=== PATIENT | female | born 1960 | race Caucasian/White ===

== ENCOUNTER 2018-09-27 17:57 | Emergency (ER) | payer BC ==
[2018-09-27 18:35] VITALS: BP 134/88
--- NOTE | 2018-09-27 19:00 | UC ---
Skin Complaint HPI - HPI Summary HPI Summary: 58 y/o female presents to the urgent care c/o Possible tick bite in the Right lateral side of lower back she noticed today around 1700. Pt is not sure how long was the tick there. She removed, but she thinks some tick remnants still there. Pain is mild 2/10. Pt has had tick bite in the past and has taken prophylactic treatment for it. Pt denies fever, SOB, chest pain, SCHMIDT, joint pain , abdominal pain, N/V/D - History of Current Complaint Chief Complaint: UCSkin Time Seen by Provider: 09/27/18 18:47 Stated Complaint: TICK BITE Hx Obtained From: Patient Onset/Duration: Sudden Onset, Lasting Days - 2 days, Still Present Skin Exposure Onset/Duration: Days Ago - 2 days ago Timing: Constant Onset Severity: Mild Current Severity: Mild Pain Intensity: 1 Pain Scale Used: 0-10 Numeric - Allergy/Home Medications Allergies/Adverse Reactions: Allergies Allergy/AdvReac Type Severity Reaction Status Date / Time amoxicillin [From Augmentin] Allergy Hives Verified 09/27/18 18:23 cefuroxime [From Ceftin] Allergy GI Upset Verified 09/27/18 18:23 clarithromycin [From Biaxin] Allergy GI Upset Verified 09/27/18 18:23 clavulanic acid Allergy Hives Verified 09/27/18 18:23 [From Augmentin] sulfamethoxazole Allergy GI Upset Verified 09/27/18 18:23 [From Bactrim] trimethoprim [From Bactrim] Allergy GI Upset Verified 09/27/18 18:23 ENVIRONMENTAL/SEASONAL Allergy Congestion Uncoded 10/20/14 08:20 Home Medications: Home Medications Cetirizine HCl [Zyrtec] 10 mg PO DAILY 09/27/18 [History Confirmed 09/27/18] PMH/Surg Hx/FS Hx/Imm Hx Previously Healthy: Yes GI/ History: Gastroesophageal Reflux Psychological History: Anxiety, Depression - Surgical History Surgical History: Yes Surgery Procedure, Year, and Place: 2005 RIGHT CARPAL TUNNEL RELEASE, [facility]. 2007 PARTIAL [facility]STERECTOMY, [facility]. LEFT KNEE ARTHROSCOPIC SURGERY, [facility] [place]. 1981 CSECTION, [facility] [place]. 2009 COLONOSCOPY, [facility] [place] - Family History Known Family History: Positive: Cardiac Disease, Hypertension - Social History Occupation: Employed Full-time Alcohol Use: None Substance Use Type: None Smoking Status (MU): Never Smoked Tobacco Review of Systems All Other Systems Reviewed And Are Negative: Yes Constitutional: Positive: Negative Skin: Positive: Other - tick bite on the Rt side of lower back Eyes: Positive: Negative ENT: Positive: Negative Respiratory: Positive: Negative Cardiovascular: Positive: Negative Gastrointestinal: Positive: Negative Genitourinary: Positive: Negative Motor: Positive: Negative Neurovascular: Positive: Negative Musculoskeletal: Positive: Negative Neurological: Positive: Negative Psychological: Positive: Negative Is Patient Immunocompromised?: No Physical Exam - Summary Physical Exam Summary: Vital Signs Reviewed: Yes General: well developed, well nourished obese female sitting in the examining table w/o any apparent distress. Eyes: Positive: Conjunctiva Clear - PERRLA, EOMI ENT: Positive: Normal ENT inspection, Hearing grossly normal, Pharynx normal, TMs normal Neck: Positive: Supple, Nontender, No Lymphadenopathy Respiratory: Positive: Chest nontender, Lungs clear, Normal breath sounds Cardiovascular: Positive: RRR, No Murmur, Pulses Normal Abdomen Description: Positive: Nontender, No Organomegaly, Soft. Negative: CVA Tenderness (R), CVA Tenderness (L) Bowel Sounds: Positive: Present Musculoskeletal: Positive: Strength Intact, ROM Intact, No Edema Neurological Exam: Normal Psychological Exam: Normal Skin: Positive: rashes - Right lateral aspect of the lower back with tick bite over a mole with surrounding erythema, non tender to palpation. tick remnant still present, no swelling or drainage observed. Triage Information Reviewed: Yes Vital Signs: Initial Vital Signs Temp 98.8 F 09/27/18 18:27 Pulse 92 09/27/18 18:27 Resp 18 09/27/18 18:27 BP 134/88 09/27/18 18:27 Pulse Ox 98 09/27/18 18:27 Course/Dx - Course Course Of Treatment: 58 y/o female presents to the urgent care c/o Possible tick bite in the Right lateral side of lower back she noticed today around 1700. Pt is not sure how long was the tick there. She removed, but she thinks some tick remnants still there. Pain is mild 2/10. Pt has had tick bite in the past and has taken prophylactic treatment for it. Pt denies fever, SOB, chest pain, SCHMIDT, joint pain , abdominal pain, N/V/D. Hx obtained. Pt w/ tick bite on the Right lateral side of lower back w/ a tick bite over a mole. Tick remnant removed w/ tweezers and skin cleaned w/ alcohol swabs and bacitracin oint applied over the area. Antibiotic prophylaxis with Doxycycline given to the patient to prevent lyme Disease.. Pt tolerated well medication. Pt advised to observe the area for the development or Erythema Migrans for upto 30 days following exposure. Advised if he develops fever or erythema Migrans to return to the clinic or PCP for further treatment .Pt understood and agreed with plan of care. - Differential Diagnoses - Skin Complaint Differential Diagnoses: Abscess, Cellulitis, Local Allergic Reaction, Tick Born Illness, Other - bee sting. insect bite - Diagnoses Provider Diagnosis: Tick bite of lower back Discharge - Sign-Out/Discharge Documenting (check all that apply): Patient Departure - d/c home All imaging exams completed and their final reports reviewed: No Studies - Discharge Plan Condition: Stable Disposition: HOME Prescriptions: Bacitracin OINTMENT* 1 applic TOPICAL BID #1 tube Patient Education Materials: Tick Bite (ED) Referrals: Omar Yadav MD [Primary Care Provider] - 2 Weeks Leelee ADORNO,Too Pollard [Medical Doctor] - If Needed Additional Instructions: 1- Please observe the area for the development or Erythema Migrans for upto 30 days following exposure. Components of the tick saliva can cause transient erythema that should not be confused with Erythema Migrans. If you develop the bull's eye rash, fever, joint pains please return to the urgent care or f/u with your PCP for further management. apply Bacitracin topical oint as directed on the tick bite to prevent local infection. 2-Antibiotic prophylaxis with Doxycycline was given to you today to prevent lyme Disease. Lyme serology can be drawn in 2 weeks with your PCP or Dr Mahan to r/o Lyme disease since there is probability of negative results at early exposure. - Billing Disposition and Condition Condition: STABLE Disposition: Home
[2018-09-27] MEDS ORDERED: DOXYcycline CAP(*) 100 MG PO ONE (19:13)
== END 2018-09-27 19:30 | disposition home or self-care (01) ==
LOC: UCEAST 17:57
DX: S30.860A Insect bite (nonvenomous) of lower back and pelvis, initial encounter (principal); W57.XXXA Bitten or stung by nonvenomous insect and other nonvenomous arthropods, initial encounter; Y92.9 Unspecified place or not applicable; K21.9 Gastro-esophageal reflux disease without esophagitis; F41.9 Anxiety disorder, unspecified; F32.9 Major depressive disorder, single episode, unspecified; Z88.1 Allergy status to other antibiotic agents; Z88.0 Allergy status to penicillin; Z88.2 Allergy status to sulfonamides
CPT/HCPCS: 99202; A9270-GY; G0463

== ENCOUNTER 2019-06-23 17:17 | Emergency (ER) | payer BC ==
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
--- OUTSIDE RECORDS SUMMARY | 2019-06-23 17:48 | XMS REPORT | Summary of Care ---
:1960 Author Organization [facility] Address [address] [facility] [place] [address] Care Team Providers Name Role Phone Omar Yadav Primary Care Provider Reason for Visit Reason Comments Follow Up pt presents for follow up with medications Encounter Details Date Type Department Care Team Description 06/09/2019 Office Visit [facility] Omar Yadav MD Major depressive disorder in remission, unspecified whether recurrent (HCC) ( Primary Dx); Practice [address] [facility] Encounter for screening mammogram for breast cancer; [address] [place] [address] BMI 40.0-44.9, adult (HCC) [place] [address] [phone] Allergies Active Allergy Reactions Severity Noted Date Comments Augmentin Rash 08/14/2009 Bactrim GI Reaction 08/14/2009 Clarithromycin GI Reaction 08/14/2009 Cefuroxime GI Reaction 08/14/2009 documented as of this encounter (statuses as of 06/09/2019) Medications Medication Sig Dispensed Refills Start Date End Date Status Calcium Take by 0 Active Carbonate-Vit D-Min mouth. (CALCIUM 1200 PO) [place]-3 Fatty Acids Take by 0 Active (OMEGA-3 1450 PO) mouth. Multiple Take by 0 Active Vitamins-Minerals mouth. (MULTIVITAMIN ADULT PO) Coenzyme Q10 (COQ-10 Take by 0 Active PO) mouth. Cranberry 200 MG Take by 0 Active Oral Cap mouth. Cholecalciferol Take by 0 Active (VITAMIN D3) 3000 mouth. units Oral Tab ALPRAZolam (XANAX) Take 1 Tab 45 Tab 0 05/26/2018 Active 0.25 MG Oral Tab by mouth THREE TIMES DAILY NEEDED (anxiety). Max Daily Amount: 0.75 mg. esomeprazole TAKE 1 90 Cap 3 11/01/2018 Active magnesium (NEXIUM) CAPSULE BY 40 MG Oral CAPSULE MOUTH ONCE DELAYED RELEASE DAILY Desloratadine 5 MG TAKE 1 90 Tab 0 05/03/2019 Active Oral Tab TABLET BY MOUTH ONCE DAILY sertraline (ZOLOFT) TAKE 1 90 Tab 0 05/03/2019 Active 100 MG Oral Tab TABLET BY MOUTH ONCE DAILY sertraline (ZOLOFT) Take 1 Tab 90 Tab 1 06/09/2019 Active 50 MG Oral Tab by mouth DAILY. doxycycline Take 100 mg 2 Tab 0 09/16/2018 Discontinued (VIBRAMYCIN) 100 MG by mouth 0 Oral Tab TWICE DAILY. sertraline (ZOLOFT) TAKE 1 90 Tab 1 12/09/2018 Discontinued 50 MG Oral Tab TABLET BY 0 (Reorder) MOUTH ONCE DAILY documented as of this encounter (statuses as of 06/09/2019) Active Problems Problem Noted Date Major depressive disorder in remission 06/04/2018 Depression 01/02/2010 Anxiety state, unspecified 01/02/2010 Migraine, unspecified, without mention of intractable migraine without 2009 mention of status migrainosus GERD (gastroesophageal reflux disease) 01/02/2010 Hyperlipidemia 01/02/2010 ENVIRONMENTAL ALLERGIES 08/14/2009 BMI 40.0-44.9, adult documented as of this encounter (statuses as of 06/09/2019) Immunizations Name Administration Dates Next Due Influenza (IM) Preservative Free 02/23/2019, 03/23/2018, 04/15/2017, 04/21/2012 Influenza Virus Vaccine Pres Free 03/21/2014 6-35 Months TDAP Vaccine 04/12/2019 documented as of this encounter Social History Tobacco Use Types Packs/Day Years Used Date Former Smoker Smokeless Tobacco: Never Used Comments: as a teen only Alcohol Use Drinks/Week oz/Week Comments Yes occasionally Sex Assigned at Date Recorded Not on file Job Start Date Occupation Industry Not on file Not on file Not on file Travel History Travel Start Travel End No recent travel history available. documented as of this encounter Last Filed Vital Signs Vital Sign Reading Time Taken Comments Blood Pressure 108/64 06/09/2019 1:47 PM EST Pulse 83 06/09/2019 1:47 PM EST Temperature - - Respiratory Rate - - Oxygen Saturation 97% 06/09/2019 1:47 PM EST Inhaled Oxygen Concentration - - Weight 94.4 kg (208 lb 1.6 oz) 06/09/2019 1:47 PM EST Height 154.9 cm (5' 1") 06/09/2019 1:47 PM EST Body Mass Index 39.32 06/09/2019 1:47 PM EST documented in this encounter Progress Notes Omar Yadav MD - 06/09/2019 1:40 PM EST PATIENT: Faye Stanton : 1960 DATE OF SERVICE: 06/09/2019 CHIEF COMPLAINT: Chief Complaint Patient presents with Follow Up pt presents for follow up with medications Subjective HISTORY OF PRESENT ILLNESS: Faye Stanton is a 59-y.o. female. Mood has been ok on the zoloft 150mg a day. Uses about 2 xanax a month . Still working as a editorial specialist. Walking for exercise 20 min qod Tries fruit vegetables, eliminates soda but still likes caffeine Past Medical History: Diagnosis Date BMI 40.0-44.9, adult (HCC) Depression ENVIRONMENTAL ALLERGIES GERD (gastroesophageal reflux disease) egd Migraine Osteopenia 02/12 Other and unspecified hyperlipidemia Postmenopausal Family History Problem Relation Age of Onset Stroke Father 80S Current Outpatient Medications Medication Sig ALPRAZolam (XANAX) 0.25 MG Oral Tab Take 1 Tab by mouth THREE TIMES DAILY NEEDED (anxiety). Max Daily Amount: 0.75 mg. Calcium Carbonate-Vit D-Min (CALCIUM 1200 PO) Take by mouth. Cholecalciferol (VITAMIN D3) 3000 units Oral Tab Take by mouth. Coenzyme Q10 (COQ-10 PO) Take by mouth. Cranberry 200 MG Oral Cap Take by mouth. Desloratadine 5 MG Oral Tab TAKE 1 TABLET BY MOUTH ONCE DAILY esomeprazole magnesium (NEXIUM) 40 MG Oral CAPSULE DELAYED RELEASE TAKE 1 CAPSULE BY MOUTH ONCE DAILY Multiple Vitamins-Minerals (MULTIVITAMIN ADULT PO) Take by mouth. [place]-3 Fatty Acids (OMEGA-3 1450 PO) Take by mouth. sertraline (ZOLOFT) 100 MG Oral Tab TAKE 1 TABLET BY MOUTH ONCE DAILY sertraline (ZOLOFT) 50 MG Oral Tab Take 1 Tab by mouth DAILY. No current facility-administered medications for this visit. Allergies Allergen Reactions Augmentin Rash Bactrim GI Reaction Biaxin [Clarithromycin] GI Reaction Ceftin [Cefuroxime] GI Reaction Social History Socioeconomic History Marital status: Single Spouse name: Not on file Number of children: Not on file Years of education: Not on file Highest education level: Not on file Occupational History Not on file Social Needs Financial resource strain: Not on file Food insecurity Worry: Not on file Inability: Not on file Transportation needs Medical: Not on file Non-medical: Not on file Tobacco Use Smoking status: Former Smoker Smokeless tobacco: Never Used Tobacco comment: as a teen only Substance and Sexual Activity Alcohol use: Yes Comment: occasionally Drug use: Not on file Sexual activity: Not on file Lifestyle Physical activity Days per week: Not on file Minutes per session: Not on file Stress: Not on file Relationships Social connections Talks on phone: Not on file Gets together: Not on file Attends spiritism service: Not on file Active member of club or organization: Not on file Attends meetings of clubs or organizations: Not on file Relationship status: Not on file Intimate partner violence Fear of current or ex partner: Not on file Emotionally abused: Not on file Physically abused: Not on file Forced sexual activity: Not on file Other Topics Concern Not on file Social History Narrative Not on file Over the last 2 weeks, have you been feeling down, depressed, anxious, or hopeless?: 0 Over the past 2 weeks, have you felt little interest or pleasure in doing things ?: 0 REVIEW OF SYSTEMS: Review of Systems HENT: Enma is year round Respiratory: Negative for shortness of breath. Cardiovascular: Negative for chest pain. Genitourinary: Still has a cervix Objective PHYSICAL EXAM: VITALS: BP 108/64 (BP Location: Left arm, Patient Position: Sitting) | Pulse 83 | Ht 5' 1" (1.549m) | Wt 208 lb 1.6 oz (94.4 kg) | SpO2 97% | BMI 39.32 kg/m Body mass index is 39.32 kg/m. Physical Exam Constitutional: Appearance: She is obese. She is not ill-appearing. Cardiovascular: Rate and Rhythm: Normal rate and regular rhythm. Heart sounds: Normal heart sounds. Pulmonary: Effort: Pulmonary effort is normal. No respiratory distress. Breath sounds: Normal breath sounds. Psychiatric: Comments: Dress and hygiene good Good eye contact Thoughts and speech normal Affect Appropriate Mood normal ASSESSMENT / IMPRESSION: ICD-9-CM ICD-10-CM 1. Major depressive disorder in remission, unspecified whether recurrent (HCC) She is doing well, no change to regimen F32.5 2. Encounter for screening mammogram for breast cancer Should also be eligible for a pap V76.12 Z12.31 MAMMO SCREENING TOMOSYNTHESIS BILATERAL 3. BMI 40.0-44.9, adult (HCC) work on diet more V85.41 Z68.41 Plan Author: Omar Yadav MD 06/09/2019 14:04 documented in this encounter Plan of Treatment Date Type Specialty Care Team Description 06/10/2019 Ancillary Procedure Radiology Name Type Priority Associated Diagnoses Order Schedule MAMMO SCREENING Imaging Routine Encounter for Expected: TOMOSYNTHESIS BILATERAL screening mammogram 06/09/2019, Expires: for breast cancer 09/06/2020 Health Maintenance Due Date Last Done Comments ZOSTER IMMUNIZATION SERIES 2008 (1 of 2) PAP SMEAR 07/21/2014 07/21/2011 (Previously completed) DIABETES SCREENING 05/13/2019 05/13/2018, 05/12/2017, 10/24/2015, Additional history exists MAMMOGRAM (SCREENING) 05/13/2019 05/13/2018, 05/12/2017, 10/24/2015, Additional history exists DEPRESSION SCREENING 06/09/2020 06/09/2019 Colonoscopy 07/21/2021 07/21/2011 (Previously completed) LIPID DISORDER SCREENING 05/13/2023 05/13/2018, 05/12/2017, 10/24/2015, Additional history exists DTaP/Tdap/Td Vaccines (2 - 04/12/2029 04/12/2019 Tdap) HEPATITIS C SCREENING Completed 05/13/2018 INFLUENZA VACCINE Completed 02/23/2019, 03/23/2018, 04/15/2017, Additional history exists HEPATITIS A IMMUNIZATION Aged Out No longer eligible SERIES based on patient's age to complete this topic HPV IMMUNIZATION SERIES Aged Out No longer eligible based on patient's age to complete this topic MENINGOCOCCAL VACCINE IMM Aged Out No longer eligible based on patient's age to complete this topic PNEUMOCOCCAL 0-64 YRS Aged Out No longer eligible based on patient's age to complete this topic documented as of this encounter Goals Goal Patient Goal Associated Recent Patient-Stated? Author Type Problems Progress Depression Depression No francis Yadav (PHQ-9) MD Omar total score < 5 Note: This is an individualized treatment (depression) goal for Faye Stanton: Displayed above is your goal for a depression screening (PHQ-9) score that would indicate good control of your depression. Keep a regular sleep schedule Lifestyle No Omar Yadav MD Note: This is an individualized lifestyle goal for Faye Stanton: Please maintain a regular sleep schedule. This may help with some symptoms of depression. Take all prescribed medications as directed Self-management No Omar Yadav MD Note: This is an individualized self-management goal for Faye Stanton: Please take all prescribed medications as directed. 1. Do not skip doses. If you cannot afford your medications, talk with your doctor. 2. Use a pill reminder system such as a pill box if needed. Your pharmacist can help you with this. 3. Contact your Pharmacy 5 days before your medication runs out. If you cannot take your medications for any reasons, talk with your doctor. 4. Please bring all of your medication bottles and inhalers (or a list of all your medications/inhalers) with you to every visit. Potential barriers to meeting all of your care plan goals will continue to be addressed on an ongoing basis. documented as of this encounter Results Not on filedocumented in this encounter Visit Diagnoses Diagnosis Encounter for screening mammogram for breast cancer BMI 40.0-44.9, adult (HCC) Body Mass Index 40.0-44.9, adult Major depressive disorder in remission, unspecified whether recurrent (HCC) documented in this encounter Insurance Payer Benefit Plan / Subscriber ID Effective Dates Phone Address Type Group KIERRA SAHNI xxxxxxxxxxxx 2014-Present [employer] Guarant[employer] Name Account Type Relation to Date of Phone Billing Patient Address Faye Stanton Personal/Family [address] (Home) [place], [place] [phone] [id number] (Work) documented as of this encounter
[2019-06-23 19:14] VITALS: BP 143/77
== END 2019-06-23 19:10 | disposition home or self-care (01) ==
LOC: ED 17:17
DX: S00.03XA Contusion of scalp, initial encounter (principal); S80.11XA Contusion of right lower leg, initial encounter; S30.1XXA Contusion of abdominal wall, initial encounter; W11.XXXA Fall on and from ladder, initial encounter; Y92.008 Other place in unspecified non-institutional (private) residence as the place of occurrence of the external cause; K21.9 Gastro-esophageal reflux disease without esophagitis; F32.9 Major depressive disorder, single episode, unspecified; Z90.711 Acquired absence of uterus with remaining cervical stump; Z79.899 Other long term (current) drug therapy; Z88.0 Allergy status to penicillin; Z88.1 Allergy status to other antibiotic agents; Z88.2 Allergy status to sulfonamides
CPT/HCPCS: 70450; 71045; 72125; 99282

== ENCOUNTER 2019-06-25 14:17 | Emergency (ER) | payer BC ==
[2019-06-25 14:21] VITALS: BP 151/88
--- NOTE | 2019-06-25 14:57 | ED ---
Head Injury - HPI Summary HPI Summary: This patient is a 59 year old female presenting to [facility] with a chief complaint of headache and dizziness after a fall and head injury on . She was given concussion precautions 2 days ago and reports increased dizziness today. She states she took Ibuprofen 8 hours ago. She had a head CT 2 days ago that was negative for acute problems. She reports one episode of nausea and vomiting. Medications reviewed, allergies noted. - History Of Current Complaint Chief Complaint: EDHeadache Stated Complaint: PAIN FROM FALL AND NAUSEA PER PT Time Seen by Provider: 06/25/19 14:49 Hx Obtained From: Patient Onset/Duration: Started Days Ago Pain Intensity: 1 Pain Scale Used: 0-10 Numeric - Allergies/Home Medications Allergies/Adverse Reactions: Allergies Allergy/AdvReac Type Severity Reaction Status Date / Time amoxicillin [From Augmentin] Allergy Hives Verified 06/25/19 14:21 cefuroxime [From Ceftin] Allergy GI Upset Verified 06/25/19 14:21 clarithromycin [From Biaxin] Allergy GI Upset Verified 06/25/19 14:21 clavulanic acid Allergy Hives Verified 06/25/19 14:21 [From Augmentin] sulfamethoxazole Allergy GI Upset Verified 06/25/19 14:21 [From Bactrim] trimethoprim [From Bactrim] Allergy GI Upset Verified 06/25/19 14:21 ENVIRONMENTAL/SEASONAL Allergy Congestion Uncoded 06/24/19 07:48 PMH/Surg Hx/FS Hx/Imm Hx Respiratory History: Reports: Hx Seasonal Allergies Comment Only: Other Respiratory Problems/Disorders - HX PNEUMONIA GI History: Reports: Hx Gastroesophageal Reflux Disease - CONTROL WITH MEDS Sensory History: Reports: Hx Contacts or Glasses - GLASSES Opthamlomology History: Reports: Hx Contacts or Glasses - GLASSES Neurological History: Reports: Hx Migraine - HX OF Psychiatric History: Reports: Hx Depression - CONTROL WITH MEDS - Surgical History Surgery Procedure, Year, and Place: 2005 RIGHT [place] [facility] [place]ERECT[place], [place]. LEFT KNEE ARTHROSCOPIC [place] [facility] [place], [facility] [place]. 2009 [place] [facility] [place]x Anesthesia Reactions: No Infectious Disease History: No Infectious Disease History: Denies: Traveled Outside the [place] in Last 30 Days - Family History Known Family History: Positive: Cardiac Disease, Hypertension - Social History Alcohol Use: None Hx Substance Use: No Substance Use Type: Reports: None Smoking Status (MU): Never Smoked Tobacco Review of Systems Positive: Vomiting, Nausea Neurological: Other - Dizziness Positive: Headache All Other Systems Reviewed And Are Negative: Yes Physical Exam - Summary Physical Exam Summary: Constitutional: Well-developed, Well-nourished, Alert. (-) Distressed Skin: Warm, Dry HENT: Normocephalic; Atraumatic Eyes: Conjunctiva normal Neck: Musculoskeletal ROM normal neck. (-) JVD, (-) Stridor, (-) Tracheal deviation Cardio: Rhythm regular, rate normal, Heart sounds normal; Intact distal pulses. Radial pulses are 2+ and symmetric. (-) Murmur Pulmonary/Chest wall: Effort normal. (-) Respiratory distress, (-) Wheezes, (-) Rales Abd: Soft. (-) Tenderness, (-) Distension, (-) Guarding, (-) Rebound Musculoskeletal: (-) Edema Lymph: (-) Cervical adenopathy Neuro: Alert, Oriented x3, Strength normal, Cranial nerves II-XII are grossly intact. (-) Dysmetria, (-) Nystagmus, (-) Ataxia by finger to nose testing, (-) Sensory deficit. Psych: Mood and affect Normal Triage Information Reviewed: Yes Vital Signs On Initial Exam: Initial Vitals Temp Pulse Resp BP Pulse Ox 96.5 F 78 16 151/88 94 06/25/19 14:19 06/25/19 14:19 06/25/19 14:19 06/25/19 14:19 06/25/19 14:19 Vital Signs Reviewed: Yes Procedures - Sedation Patient Received Moderate/Deep Sedation with Procedure: No Diagnostics - Vital Signs Vital Signs Temp Pulse Resp BP Pulse Ox 06/25/19 14:19 96.5 F 78 16 151/88 94 - Laboratory Lab Statement: Any lab studies that have been ordered have been reviewed, and results considered in the medical decision making process. Head Injury Course/Dx Course Of Treatment: Patient is here with dizziness and nausea. Patient sustained a large trauma 2 days ago where she was seen here by myself. At that time, patient a CT scan of her head and neck which were negative for any acute abnormality's. Patient will symptoms this morning. Patient has vertigo with movement of her head. Patient has a normal neurologic exam with no evidence of nystagmus. Patient is likely suffering from a concussion given her recent trauma and is discharged on meclizine and Zofran. Patient was told about [facility] in and she will follow up with her primary care doctor who will clear her for work. - Diagnoses Provider Diagnoses: Concussion Discharge ED - Sign-Out/Discharge Documenting (check all that apply): Patient Departure - Discharge - Discharge Plan Condition: Stable Disposition: HOME Prescriptions: Meclizine TAB* [Antivert 12.5 TAB*] 25 mg PO TID PRN #20 tab PRN Reason: Dizziness Ondansetron ODT TAB* [Zofran 4 MG Odt TAB*] 4 mg PO Q8HR PRN #12 tab.odt PRN Reason: Nausea Patient Education Materials: Concussion (ED) Forms: *Work Release Referrals: Omar Yadav MD [Primary Care Provider] - 2 Days Additional Instructions: If you continue to have symptoms for the next week follow up with your primary care provider for referral [facility]. Avoid screens or mental work until cleared by your primary care provider. Return with one-sided weakness , inability to walk, or any other concerning symptoms. - Billing Disposition and Condition Condition: STABLE Disposition: Home - Attestation Statements Document Initiated by Sp: Yes Documenting Scribe: Chun Bo Provider For Whom Sp is Documenting (Include Credential): Sukumar Escobar MD Scribe Attestation: Chun Francisco, scribed for Sukumar Escobar MD on 06/25/19 at 1657. Scribe Documentation Reviewed: Yes Provider Attestation: The documentation as recorded by the Chun echeverria accurately reflects the service I personally performed and the decisions made by Sukumar shafer MD Status of Scribe Document: Viewed
[2019-06-25] MEDS ORDERED: Ondansetron ODT TAB* 4 MG PO ONE (15:03)
[2019-06-25] MEDS ORDERED: Meclizine TAB* 12.5 MG PO ONE (15:03)
== END 2019-06-25 15:20 | disposition home or self-care (01) ==
LOC: ED 14:17
DX: S06.0X9A Concussion with loss of consciousness of unspecified duration, initial encounter (principal); W19.XXXA Unspecified fall, initial encounter; Y92.9 Unspecified place or not applicable; K21.9 Gastro-esophageal reflux disease without esophagitis; F32.9 Major depressive disorder, single episode, unspecified; Z90.710 Acquired absence of both cervix and uterus; Z88.0 Allergy status to penicillin; Z88.1 Allergy status to other antibiotic agents; Z88.2 Allergy status to sulfonamides
CPT/HCPCS: 99282; A9270-GY